=== PATIENT | male | born 1950 | race Two or more races ===

== ENCOUNTER → 2019-10-04 | Outpatient (CLI) | payer OTHER | END | disposition home or self-care (01) | LOC: MRI 08:51 | DX: M54.5 Low back pain (principal) | CPT/HCPCS: 72148 ==

== ENCOUNTER 2023-08-21 14:36 | Outpatient (CLI) | payer OTHER | END 2023-08-21 14:41 | disposition home or self-care (01) | LOC: RAD 14:36 | PROVIDERS: ATTEND Specialist | DX: M47.22 Other spondylosis with radiculopathy, cervical region (principal); M47.812 Spondylosis without myelopathy or radiculopathy, cervical region ==

== ENCOUNTER → 2023-09-22 | Outpatient (CLI) | payer OTHER | END | disposition home or self-care (01) | LOC: NUCLEAR 13:00 | PROVIDERS: ATTEND General Practice | DX: Z13.820 Encounter for screening for osteoporosis (principal) ==

== ENCOUNTER 2023-11-01 11:23 | Outpatient (CLI) | payer OTHER | END 2023-11-01 11:31 | disposition home or self-care (01) | LOC: MRI 11:23 | PROVIDERS: ATTEND Specialist | DX: M47.22 Other spondylosis with radiculopathy, cervical region (principal); M54.12 Radiculopathy, cervical region; M50.220 Other cervical disc displacement, mid-cervical region, unspecified level | CPT/HCPCS: 72141 ==

== ENCOUNTER 2024-06-24 08:58 | Outpatient (CLI) | payer OTHER | END 2024-06-24 08:59 | disposition home or self-care (01) | LOC: NUCLEAR 08:58 | DX: E78.00 Pure hypercholesterolemia, unspecified (principal); R20.0 Anesthesia of skin ==

== ENCOUNTER 2024-07-01 08:39 | Outpatient (CLI) | payer OTHER | END 2024-07-01 08:42 | disposition home or self-care (01) | LOC: NUCLEAR 08:39 | PROVIDERS: ATTEND General Practice | DX: E78.00 Pure hypercholesterolemia, unspecified (principal); R20.0 Anesthesia of skin ==

== ENCOUNTER 2024-07-01 10:25 | Outpatient (CLI) | payer OTHER | END 2024-07-01 10:34 | disposition home or self-care (01) | LOC: RAD 10:25 | PROVIDERS: ATTEND General Practice | DX: M77.12 Lateral epicondylitis, left elbow (principal) ==

== ENCOUNTER 2025-03-25 11:06 | Outpatient (CLI) | payer OTHER | END 2025-03-25 11:14 | disposition home or self-care (01) | LOC: MRI 11:06 | PROVIDERS: ATTEND General Practice | DX: R19.03 Right lower quadrant abdominal swelling, mass and lump (principal); M51.369 Other intervertebral disc degeneration, lumbar region without mention of lumbar back pain or lower extremity pain; R20.0 Anesthesia of skin | CPT/HCPCS: 72148 ==